=== PATIENT | female | born 1990 | race Caucasian/White ===

== ENCOUNTER 2020-07-12 16:48 | Emergency (ER) | payer OTHER ==
[2020-07-12 17:22] VITALS: BP 148/97; PULSE 77; TEMP 98.9; BMI 29.0
[2020-07-12] MEDS ORDERED: diphenhydrAMINE HCL 25 MG CAPSULE (FP) PO ONE (17:32)
[2020-07-12] MEDS ORDERED: diphenhydrAMINE HCL 50 MG CAPSULE ONE (17:36)
[2020-07-12] MEDS ORDERED: predniSONE 20 MG TABLET (UD) PO ONE (18:25)
[2020-07-12] MEDS ORDERED: predniSONE 20 MG TABLET (UD) ONE (18:26)
== END 2020-07-12 18:38 | disposition home or self-care (01) ==
LOC: FER 16:48
DX: L50.9 Urticaria, unspecified (principal)
CPT/HCPCS: 99284-25

== ENCOUNTER 2024-02-08 20:00 | Inpatient (IN) | payer OTHER ==
[2024-02-08 21:38] VITALS: BMI 33.3
[2024-02-08] MEDS ORDERED: AMPICILLIN - 2 GM in SODIUM CHLORIDE 100 ML IVPB ONE (21:45)
[2024-02-08 22:15] LABS: BASO % 0.7 % (0-2.0); EOS % 1.1 % (0-4.5); HEMATOCRIT 34.7 % (32.4-45.2); HEMOGLOBIN 11.7 GM/dL (10.7-15.3); INR 0.89 (0.83-1.09); LYMPH % 18.7 % (8-40); MCH 30.6 pg (25.7-33.7); MCHC 33.7 g/dl (32.0-36.0); MEAN CELL VOLUME 90.8 fl (80-96); MEAN PLT VOLUME 9.8 fl (7.5-11.1); MONO % 8.3 % (3.8-10.2); NEUT % 71.2 % (42.8-82.8); PLATELET COUNT 161 10^3/uL (134-434); PROTHROMBIN TIME (PATIENT) 10.3 SEC (9.7-13.0); RBC 3.82 M/mm3 (3.60-5.2); RDW 14.4 % (11.6-15.6); WHITE BLOOD COUNT 7.7 K/mm3 (4.0-10.0)
[2024-02-08] MEDS: LACTATED RINGERS SOLUTION 1,000 ML IV SCH (22:15)
[2024-02-08 22:17] LABS: ACTIVATED PTT 26.2 SECONDS (25.2-36.5)
[2024-02-08 22:29] LABS: CALCIUM 8.9 mg/dL (8.5-10.1)
[2024-02-08 22:30] LABS: ALBUMIN 2.8 g/dl (3.4-5.0); BLOOD UREA NITROGEN 16.5 mg/dL (7-18)
[2024-02-08 22:33] LABS: CREATININE 0.7 mg/dL (0.55-1.3)
[2024-02-08 22:34] LABS: BILIRUBIN,TOTAL 0.2 mg/dL (0.2-1)
[2024-02-08 22:35] LABS: TOT PROT 6.4 g/dl (6.4-8.2)
[2024-02-08 22:41] LABS: METHADONE, UR NEGATIVE (NEGATIVE); OPIATES, URI NEGATIVE (NEGATIVE); PHENCYCLIDINE,URINE NEGATIVE (NEGATIVE); URINE BARBITURATES NEGATIVE (NEGATIVE); URINE BENZODIAZEPINES NEGATIVE (NEGATIVE)
[2024-02-08 22:47] LABS: COCAINE, UR NEGATIVE (NEGATIVE); URINE AMPHETAMINES NEGATIVE (NEGATIVE)
[2024-02-08 22:48] LABS: SYPHILIS W/ RPR CONF NON-REACTIVE (NONREACTIVE)
[2024-02-08] MEDS ORDERED: AMPICILLIN SODIUM 2 GM VIAL ONE (22:50)
[2024-02-08] MEDS: AMPICILLIN - 2 GM in SODIUM CHLORIDE 100 ML IVPB ONE (22:55)
[2024-02-08 23:12] LABS: URINE APPEARANCE CLOUDY; URINE BILIRUBIN NEGATIVE (NEGATIVE); URINE COLOR YELLOW; URINE GLUCOSE (UA) NEGATIVE (NEGATIVE)
[2024-02-08 23:13] LABS: PH,URINE 6.5 (5.0-8.0); URINE KETONE NEGATIVE (NEGATIVE); URINE LEUK ESTERASE NEGATIVE (NEGATIVE); URINE NITRITE NEGATIVE (NEGATIVE); URINE PROTEIN NEGATIVE (NEGATIVE); URINE UROBILINOGEN 0.2 mg/dL (0.2-1.0)
[2024-02-08 23:17] LABS: HIV INTERPRETATION NEGATIVE (NEGATIVE)
[2024-02-09] MEDS ORDERED: AMPICILLIN - 1 GM in SODIUM CHLORIDE 100 ML IVPB SCH (01:45)
[2024-02-09] MEDS ORDERED: FENTANYL/BUPIVACAINE/NS/PF - PCEA - 50 ML DISP.SYRIN EP ONE ×2 (02:43→08:06)
[2024-02-09] MEDS ORDERED: AMPICILLIN SODIUM 1 GM VIAL ONE ×2 (02:47→07:25)
[2024-02-09] MEDS: AMPICILLIN - 1 GM in SODIUM CHLORIDE 100 ML IVPB SCH (02:50)
[2024-02-09] MEDS: FENTANYL/BUPIVACAINE/NS/PF - PCEA - 50 ML DISP.SYRIN EP SCH (03:20)
[2024-02-09] MEDS ORDERED: NALOXONE HCL 0.4 MG/ML VIAL IVPUSH PRN (03:31)
[2024-02-09 08:00] LABS: POC NITRAZINE POS
[2024-02-09] MEDS ORDERED: OXYTOCIN 30 UNITS in 0.9% NS 30 UNIT/500 ML INFUS.BAG IVPB ONE (09:05)
[2024-02-09] MEDS ORDERED: LIDOCAINE HCL 1% PRESERVATIVE FREE - 30ML VIAL ONE (09:17)
[2024-02-09] MEDS ORDERED: OXYTOCIN 20 UNITS in 0.9% NS 20 UNIT/1,000 ML INFUS.BAG IV ONE (09:17)
[2024-02-09] MEDS ORDERED: ACETAMINOPHEN INJECTION 100 ML ONE (10:15)
[2024-02-09] MEDS: OXYTOCIN 30 UNITS in 0.9% NS 30 UNIT/500 ML INFUS.BAG IVPB SCH (10:20)
[2024-02-09] MEDS: AMPICILLIN NA/SULBACTAM NA 3 GM in SODIUM CHLORIDE 100 ML IVPB SCH (11:38)
[2024-02-09] MEDS ORDERED: MISOPROSTOL 200 MCG TABLET ONE (13:29)
[2024-02-09] MEDS: OXYTOCIN 20 UNITS in 0.9% NS 20 UNIT/1,000 ML INFUS.BAG IV SCH (13:30)
[2024-02-09] MEDS ORDERED: BENZOCAINE 28 GM HEMORRHOIDAL OINTMENT TP PRN (14:05)
[2024-02-09] MEDS ORDERED: BISACODYL 10 MG SUPP.RECT RC PRN (14:05)
[2024-02-09] MEDS ORDERED: WITCH HAZEL 50% (TUCKS) 40 PAD/JAR PAD TP PRN (14:05)
[2024-02-09] MEDS: MISOPROSTOL 200 MCG TABLET PR ONE (14:07)
[2024-02-09 14:42] LABS: CORD BASE EXCESS -5.4 mmol/L (0-2); CORD HCO3 20.8 mmHg (20-29); CORD PCO2 42.8 mmHg (30-78); CORD pH 7.304 (7.14-7.44)
[2024-02-09] MEDS: METHYLERGONOVINE MALEATE 0.2 MG/1 ML AMP IM ONE (15:38)
[2024-02-09] MEDS: IBUPROFEN 600 MG TABLET (FP) PO PRN (19:19)
[2024-02-09] MEDS: PROMETHAZINE HCL 25 MG/1 ML VIAL IVPB ONE (19:21)
[2024-02-09] MEDS: BUTORPHANOL TARTRATE 1 MG/ML VIAL IVPB ONE (19:21)
[2024-02-09] MEDS: ACETAMINOPHEN 325 MG TABLET (FP) PO ONE (19:21)
[2024-02-09] MEDS: ELECTROLYTE-148 SOLN 1,000 ML IV SCH (19:36)
[2024-02-10] MEDS: ACETAMINOPHEN 325 MG TABLET (FP) PO PRN (06:09)
[2024-02-10 08:46] LABS: BASO % 0.6 % (0-2.0); EOS % 0.8 % (0-4.5); HEMATOCRIT 28.6 % (32.4-45.2); HEMOGLOBIN 9.5 GM/dL (10.7-15.3); LYMPH % 12.2 % (8-40); MCH 30.3 pg (25.7-33.7); MCHC 33.2 g/dl (32.0-36.0); MEAN CELL VOLUME 91.1 fl (80-96); MEAN PLT VOLUME 9.9 fl (7.5-11.1); MONO % 8.2 % (3.8-10.2); NEUT % 78.2 % (42.8-82.8); PLATELET COUNT 113 10^3/uL (134-434); RBC 3.14 M/mm3 (3.60-5.2); WHITE BLOOD COUNT 12.4 K/mm3 (4.0-10.0)
[2024-02-10] MEDS: FLU VACCINE (FLULAVAL) PF 45 MCG/0.5 ML SYRINGE 2024-2025 IM ONE (10:09)
[2024-02-10] MEDS ORDERED: SENNOSIDES/DOCUSATE COMBO (SENNA PLUS) TABLET (UD) PO PRN (22:00)
[2024-02-11 10:33] VITALS: BP 134/75; PULSE 79; RESP 17; TEMP 98
== END 2024-02-11 15:00 | disposition home or self-care (01) | DRG 560 ==
LOC: JDEL 20:00 → JLDR 20:30 → J3W 02-09 16:31
PROVIDERS: ADMIT Obstetrics & Gynecology Obstetrics; ATTEND Obstetrics & Gynecology Obstetrics
PROC: 10E0XZZ Delivery of Products of Conception, External Approach (ICD-10-PCS; principal; 2024-02-08)
PROC: 0W8NXZZ Division of Female Perineum, External Approach (ICD-10-PCS; 2024-02-08)
PROC: 0KQM0ZZ Repair Perineum Muscle, Open Approach (ICD-10-PCS; 2024-02-08)
DX: O41.1230 Chorioamnionitis, third trimester, not applicable or unspecified (principal); O42.013 Preterm premature rupture of membranes, onset of labor within 24 hours of rupture, third trimester; O70.1 Second degree perineal laceration during delivery; O76 Abnormality in fetal heart rate and rhythm complicating labor and delivery; Z37.0 Single live birth; Z3A.36 36 weeks gestation of pregnancy
CPT/HCPCS: 36415; 36600; 59409; 76815; 80053; 80307; 81003; 82803; 83986-QW; 85025; 85610; 85730; 86765; 86780; 86803; 86850; 86900; 86901; 87070; 87186; 87205; 87340; 87389; 88307-TC; 90656; G0008; J0131